=== PATIENT | male | born 1975 | race Caucasian/White ===

== ENCOUNTER 2017-04-11 17:47 | Emergency (ER) | payer BC ==
[2017-04-11 18:30] VITALS: BP 141/94
--- NOTE | 2017-04-11 19:34 | UC ---
Skin Complaint HPI - HPI Summary HPI Summary: 41 y/o male presents to the urgent care c/o rash on his right arm that is spreading on his right leg for the past 5 days. He was on [place] last week and was [place] The rash showed up 2 days after he was in the [place]. he assumes it is poison alisha or oak. he has tried OTC creams without relief. Pt states it itches a lot. Pt denies fever, SOB, chest pain, N/V/D - History of Current Complaint Chief Complaint: UCRash Time Seen by Provider: 04/11/17 19:25 Stated Complaint: RASH Hx Obtained From: Patient Onset/Duration: Gradual Onset, Lasting Days - 5 days, Still Present Skin Exposure Onset/Duration: Weeks Ago - 1 week Timing: Constant Onset Severity: Mild Current Severity: Moderate Pain Intensity: 0 Pain Scale Used: 0-10 Numeric Location: Diffuse - RT arm and left leg Character: Swelling, Pruritus, Redness Aggravating: Touch Alleviating: OTC Meds - mild relief Associated Signs & Symptoms: Positive: Negative. Negative: Nausea, Vomiting, Difficulty Breathing, Fever, Chills, Throat Tightening, Tenderness Related History: Possible Reaction to: Environmental Exposure - Allergy/Home Medications Allergies/Adverse Reactions: Allergies Allergy/AdvReac Type Severity Reaction Status Date / Time No Known Allergies Allergy Verified 04/11/17 18:31 Review of Systems Constitutional: Negative Skin: Rash Eyes: Negative ENT: Negative Respiratory: Negative Cardiovascular: Negative Gastrointestinal: Negative Genitourinary: Negative Motor: Negative Neurovascular: Negative Musculoskeletal: Negative Neurological: Negative Psychological: Negative Is Patient Immunocompromised?: No All Other Systems Reviewed And Are Negative: Yes PMH/Surg Hx/FS Hx/Imm Hx Previously Healthy: Yes - Pt denies PMHX - Surgical History Surgical History: Yes Surgery Procedure, Year, and Place: SX LEFT HAND - Family History Known Family History: Positive: Hypertension - Social History Occupation: Employed Full-time Lives: With Family Alcohol Use: Daily Alcohol Amount: 6-12 beer daily Substance Use Type: None Smoking Status (MU): Current Some Day Smoker Type: Cigarettes Amount Used/How Often: intermittent use Have You Smoked in the Last Year: Yes When Did the Patient Quit Smoking/Using Tobacco: 5 YRS AGO Physical Exam Triage Information Reviewed: Yes Appearance: Well-Appearing, No Pain Distress, Well-Nourished, Obese Vital Signs: Initial Vital Signs Temp 99.3 F 04/11/17 18:27 Pulse 84 04/11/17 18:27 Resp 16 04/11/17 18:27 BP 141/94 04/11/17 18:27 Pulse Ox 100 04/11/17 18:27 Vital Signs Reviewed: Yes Eye Exam: Normal Eyes: Positive: Conjunctiva Clear - PERRLA, EOMI ENT Exam: Normal ENT: Positive: Normal ENT inspection, Hearing grossly normal, Pharynx normal, TMs normal Neck exam: Normal Neck: Positive: Supple, Nontender, No Lymphadenopathy Respiratory Exam: Normal Respiratory: Positive: Chest non-tender, Lungs clear, Normal breath sounds Cardiovascular Exam: Normal Cardiovascular: Positive: RRR, No Murmur, Pulses Normal, Brisk Capillary Refill Abdominal Exam: Normal Abdomen Description: Positive: Nontender, No Organomegaly, Soft. Negative: CVA Tenderness (R), CVA Tenderness (L) Bowel Sounds: Positive: Present Musculoskeletal Exam: Normal Musculoskeletal: Positive: Strength Intact, ROM Intact, No Edema Neurological Exam: Normal Psychological Exam: Normal Skin: Positive: rashes - Medial aspect of Rt arm and forearm and lateral side of LF leg with erythematous eruption with mixture of blister and weeping vesicles in a linear streaks arrangement. Some crusting is also observed with signs of scoriation. non tender topalpation Course/Dx - Course Course Of Treatment: 41 y/o male presents to the urgent care c/o rash on his right arm that is spreading on his right leg for the past 5 days. He was on [place] last week and was [place]. The rash showed up 2 days after he was in the [place]. he assumes it is poison [place]isha or [place]. he has tried OTC creams without relief. Pt states it itches a lot. Pt denies fever, SOB, chest pain, N/V /D.Hx obtained. Pt rash is probably poison [place] exposure. Pt given 60mg PO Prednisone and Benadryl PO at the clinic since pharmacy is close at this time. Pt Tolerated well medication and Rx taper dose of Prednisone. and Clbetasol to alleviate symptoms. Advised If symptoms do not improve or worsen please return to the urgent care or f/u with your PCP. Pt understood and agreed and left the clinic ambulating. A&OX3 - Differential Diagnoses - Skin Complaint Differential Diagnoses: Abscess, Allergic Reaction, Cellulitis, Contact Dermatitis, Impetigo, Local Allergic Reaction, MRSA, Poison [place], Poison [place] - Diagnoses Provider Diagnoses: 1- Acute unspecified rash Discharge - Discharge Plan Condition: Stable Disposition: HOME Prescriptions: Clobetasol 0.05% OINT* 1 applic TOPICAL BID #1 tube diPHENhydraMINE PO* [Benadryl PO 25 MG TAB*] 25 mg PO TID PRN #15 tab PRN Reason: Pruritis predniSONE TAB* [Deltasone TAB*] 20 mg PO DAILY #11 tab Patient Education Materials: Poison [place] (ED) Referrals: [facility] [Outside] - 1 Week No Primary Care Phys,NOPCP [Primary Care Provider] - Additional Instructions: 1-Please take Prednisone PO as directed, and apply topical cream as directed to alleviate symptoms 2- TAke Benadryl PO to alleviate itchiness 3-If symptoms do not improve or worsen please return to the urgent care or f/u with your PCP
== END 2017-04-11 19:52 | disposition home or self-care (01) ==
LOC: UCEAST 17:47
DX: R21 Rash and other nonspecific skin eruption (principal); Z72.0 Tobacco use
CPT/HCPCS: 99212; G0463